=== PATIENT | female | born 1985 | race African-American/Black ===

== ENCOUNTER → 2017-05-20 | Outpatient (CLI) | payer OTHER ==
[2016-08-12 22:16] VITALS: BP 144/86
[~2017-05-20] MED LIST: METR500T PO
--- NOTE | 2017-05-20 16:17 | KCIC ---
Ultrasound pelvis with transvaginal 05/20/2017 CLINICAL INDICATION: Vaginal bleeding. COMPARISON: None. TECHNIQUE: Transabdominal and transvaginal images were obtained. FINDINGS: Uterus measures 11.3 x 5.1 x 5.9 cm. Endometrium is normal in thickness measuring 4 mm with no suspicious centimeters blood flow. There are few cervical nabothian cysts. There is a probable anterior fundal intramural fibroid measuring 2.4 x 2.4 x 2.5 cm with no definite submucosal component. Right ovary measures 3.0 x 3.2 x 1.9 cm. Left ovary measures 2.4 x 2.3 x 2.4 cm. Normal color Doppler imaging of both ovaries. There is trace pelvic free fluid, likely physiologic. IMPRESSION: Small fundal intramural fibroid measuring up to 2.5 cm with no significant submucosal component. Electronically signed by: Tyree Sierra MD (05/20/2017 4:13 PM) [id number]
== END | disposition home or self-care (01) ==
LOC: KCIC US 14:19
PROVIDERS: ATTEND Family Medicine
DX: N93.9 Abnormal uterine and vaginal bleeding, unspecified (principal); N88.8 Other specified noninflammatory disorders of cervix uteri
CPT/HCPCS: 76830; 76856

== ENCOUNTER → 2017-07-02 | Outpatient (CLI) | payer OTHER ==
[2016-08-12 22:16] VITALS: BP 144/86
--- NOTE | 2017-07-02 13:13 | KCIC ---
LUMBAR SPINE MIN 4V History: Low back pain into the right hip Comparison: None. Findings: 6 views of the lumbar spine are submitted. There is mild inferior lumbar dextroscoliosis. Lumbar vertebral body stature and AP alignment are maintained. No acute osseous abnormality is identified by radiographs. There are clips in the pelvis probably due to tubal ligation although asymmetric location on the left which is more lateral and apparently anteriorly located compared with the right. Impression: 1. There is mild inferior lumbar dextroscoliosis. 2. There is asymmetric location of presumable tubal clips. Electronically signed by: Monroe Beck MD (07/02/2017 1:10 PM) [email or web address]
--- NOTE | 2017-07-02 13:17 | KCIC ---
HIP RIGHT 2 VIEW History: Right hip pain, low back pain Comparison: None. Findings: 2 views of the right hip are submitted. No acute fracture or dislocation is identified. Right femoral head morphology is preserved. There is mild osteophyte formation of the superior lateral acetabulum. Impression: 1. No acute osseous abnormality is identified. Electronically signed by: Monroe Beck MD (07/02/2017 1:14 PM) [facility]-[id number]
== END | disposition home or self-care (01) ==
LOC: KCIC 11:24
PROVIDERS: ATTEND Family Medicine
DX: M54.5 Low back pain (principal); M25.551 Pain in right hip; G89.29 Other chronic pain
CPT/HCPCS: 72110; 73502

== ENCOUNTER 2019-05-20 23:00 | Emergency (ER) | payer SELFPAY ==
[~2019-05-20] VITALS: Ht 167.6 cm; Wt 127.0 kg
[2019-05-20 23:20] VITALS: BP 148/91
[2019-05-20 23:21] LABS: BILIRUBIN,URINE SMALL (NEG); CLARITY,URINE CLEAR; COLOR,URINE YELLOW; NITRITE,URINE NEGATIVE (NEG); PH,URINE 5.5; PROTEIN,URINE NEGATIVE (NEG-TRACE); UROBILINOGEN,URINE 0.2 mg/dL (0.2 mg/dL)
[2019-05-20 23:28] LABS: BACTERIA,URINE FEW /HPF (0-FEW); SQUAMOUS EPITHELIAL CELL,UR MOD /LPF; WBC,URINE 20-40 /HPF (0-4)
[2019-05-20 23:30] LABS: RBC,URINE OCC /HPF (0-2)
[2019-05-20] MEDS ORDERED: METR500T PO (23:40)
[2019-05-20] MEDS ORDERED: CEPH500T PO (23:40)
[2019-05-20] MEDS ORDERED: cefTRIAXone IM 250 MG VIAL IM ONE (23:45)
[2019-05-20] MEDS ORDERED: AZITHROMYCIN 250 MG TABLET. PO ONE (23:45)
--- NOTE | 2019-05-21 00:23 | PHYS DOC ---
Past Medical History Past Medical History: STD Past Surgical History: Tonsillectomy, Tubal ligation Alcohol Use: Occasionally Drug Use: None Adult General Chief Complaint Chief Complaint: VAGINAL PROBLEM HPI HPI Patient is a 33 year old female presenting with vaginal discharge she says she knows that she has Trichomonas she's had this before is the exact same symptoms she does not want a pelvic examination she just wants the treatment. Review of Systems Review of Systems Constitutional: Denies fever or chills [] Eyes: Denies change in visual acuity, redness, or eye pain [] : Denies dysuria or hematuria [] Musculoskeletal: Denies back pain or joint pain [] Integument: Denies rash or skin lesions [] All other systems were reviewed and found to be within normal limits, except as documented in this note. Current Medications Current Medications Current Medications Medications (Trade) Dose Ordered Sig/Merari Start Time Stop Time Status Last Admin Dose Admin Azithromycin (Zithromax) 1,000 mg 1X ONCE 05/20/19 23:45 05/20/19 23:46 DC 05/20/19 23:57 1,000 MG Ceftriaxone Sodium (Rocephin Im) 250 mg 1X ONCE 05/20/19 23:45 05/20/19 23:46 DC 05/20/19 23:57 250 MG Allergies Allergies Allergies Coded Allergies Type Severity Reaction Last Updated Verified tramadol Allergy Intermediate 08/12/16 Yes Physical Exam Physical Exam Constitutional: Well developed, well nourished, no acute distress, non-toxic appearance. [] HENT: Normocephalic, atraumatic, bilateral external ears normal, oropharynx lauren [address], no oral exudates, nose normal. [] Eyes: PERRLA, EOMI, conjunctiva normal, no discharge. [] Neck: Normal range of motion, no tenderness, supple, no stridor. [] Abdomen: Bowel sounds normal, soft, no tenderness, no masses, no pulsatile masses. [] Skin: Warm, dry, no erythema, no rash. [] Back: No tenderness, no CVA tenderness. [] Extremities: No tenderness, no cyanosis, no clubbing, ROM intact, no edema. [] Neurologic: Alert and oriented X 3, normal motor function, normal sensory function, no focal deficits noted. [] Psychologic: Affect normal, judgement normal, mood normal. [] Current Patient Data Vital Signs Vital Signs Date Time Temp Pulse Resp B/P (MAP) Pulse Ox O2 Delivery O2 Flow Rate FiO2 05/20/19 23:20 98.1 87 20 148/91 (110) 99 Room Air 98.1 Lab Values Laboratory Tests Test 05/20/19 23:06 05/20/19 23:07 Urine Collection Type Unknown Urine Color Yellow Urine Clarity Clear Urine pH 5.5 Urine Specific [place] >=1.030 Urine Protein Negative mg/dL (NEG-TRACE) Urine Glucose (UA) Negative mg/dL (NEG) Urine Ketones (Stick) Negative mg/dL (NEG) Urine Blood Negative (NEG) Urine Nitrite Negative (NEG) Urine Bilirubin Small (NEG) Urine Urobilinogen Dipstick 0.2 mg/dL (0.2 mg/dL) Urine Leukocyte Esterase Moderate (NEG) Urine RBC Occ /HPF (0-2) Urine WBC 20-40 /HPF (0-4) Urine Squamous Epithelial Cells Mod /LPF Urine Bacteria Few /HPF (0-FEW) Urine Mucus Marked /LPF POC Urine HCG, Qualitative Hcg negative (Negative) EKG EKG [] Radiology/Procedures Radiology/Procedures [] Course & Med Decision Making Course & Med Decision Making Pertinent Labs and Imaging studies reviewed. (See chart for details) []33-year-old female with vaginitis symptoms possible UTI and urinalysis Keflex was given as a prescription. We did give Flagyl due to her strong preference and she gives a clear history of previous infection similar to this. Also gave presumptive STD treatment in case of other STD she does not want testing right now she just wants treatment Dragon Disclaimer Dragon Disclaimer This electronic medical record was generated, in whole or in part, using a voice recognition dictation system. Departure Departure Impression: Primary Impression: Urinary tract infection Disposition: HOME, SELF-CARE Condition: STABLE Patient Instructions: Urinary Tract Infection, [id number] Scripts Metronidazole (FLAGYL) 500 Mg Tablet 1 TAB PO BID, #14 TAB Prov: BILLY TRIPATHI MD 05/20/19 Cephalexin (CEPHALEXIN) 500 Mg Tablet 1 TAB PO TID, #30 TAB Prov: BILLY TRIPATHI MD 05/20/19 BILLY TRIPATHI MD May 21, 2019 00:23
== END 2019-05-20 23:45 | disposition home or self-care (01) ==
LOC: ER 23:00
DX: N39.0 Urinary tract infection, site not specified (principal); Z98.51 Tubal ligation status; Z88.6 Allergy status to analgesic agent
CPT/HCPCS: 81001; 81025; 87086; 96372; 99284; J0696; Q0144